=== PATIENT | female | born 1995 | race Caucasian/White ===

== ENCOUNTER → 2017-04-11 | Outpatient (CLI) | payer BC, MEDICAID ==
[~2017-04-11] MED LIST: ACET1TAB43 PO; AMOX250S5 PO; DCS100C PO; DEXAINTSOL PO; DOCU100C37 PO; FERR325T18 PO; HYDR-1231 PO; HYDR-3714 PO; HYDR15SO6 PO; IBUP-1773 PO; OMEP20CA12 PO; ONDA-42 SL; PRM25T PO; RANI150T15 PO; TETRACAINESUCKERS MT
--- NOTE | 2017-04-11 16:30 | Diagnostic Imaging Report ---
INDICATION: Abnormal uterine bleeding. TECHNIQUE: Transabdominal and transvaginal pelvic sonography was performed. FINDINGS: The uterus measures 6.9 x 4.6 x 3.7 cm. The endometrium is 8 mm in thickness. No uterine mass is identified. The right ovary measures 3.1 x 2.6 x 2.1 cm. There is blood flow to the right ovary. The left ovary was not visualized. No adnexal mass or free fluid is seen. IMPRESSION: Nonvisualized left ovary. The study is otherwise unremarkable. Dictated by: Dictated on workstation # [id number]
== END ==
LOC: RAD 14:36
PROVIDERS: ATTEND Obstetrics & Gynecology
DX: N93.9 Abnormal uterine and vaginal bleeding, unspecified (principal)
CPT/HCPCS: 76830; 76856

== ENCOUNTER → 2017-09-10 | Outpatient (CLI) | payer BC, MEDICAID ==
[~2017-09-10] MED LIST changes: -RANI150T15 PO; +RANI150T46 PO
--- NOTE | 2017-09-10 17:13 | Diagnostic Imaging Report ---
INDICATION: Survey. TECHNIQUE: Multiple real-time grayscale images were obtained over the gravid uterus. COMPARISON: 04/11/2017. FINDINGS: [place] intrauterine gestation is in cephalic position. The grade 2 placenta is posterior with no abruption or previa and a normal amniotic fluid volume. No pathological finding at the anatomical survey is revealed, however the cord insertion as well as the spine are suboptimally visualized on a positional basis. heart rate regular at 142 beats per minute. The measurements correlate with an average age 20 weeks 4 days. Biometrical measurements are as follows: Biparietal 4.77 cm, age 20 weeks 3 days. Head circumference 17.48 cm, age 20 weeks 1 days. Abdominal circumference 15.83 cm, age 21 weeks 0 days. Femur length 3.29 cm, age 20 weeks 2 days. Sonographic estimate age: 20 weeks 4 days. Sonographic estimated date of delivery: 01/24/18. Estimated Weight: 363 gm (+/- 53 gm). LMP percentile: 90%. heart rate: 142 beats per minute. number: 1 of 1. IMPRESSION: [place] viable IUP today measures 20 weeks 4 days. While no pathological finding is revealed, the spine and the cord insertion are suboptimally visualized. Dictated by: Dictated on workstation # [id number]
== END ==
LOC: RAD 14:26
PROVIDERS: ATTEND Obstetrics & Gynecology
DX: Z36.89 Encounter for other specified antenatal screening (principal); Z3A.20 20 weeks gestation of pregnancy
CPT/HCPCS: 76805

== ENCOUNTER 2018-01-10 12:45 | Outpatient (CLI) | payer BC, MEDICAID ==
[2018-01-10 12:55] VITALS: BP 134/79
--- NOTE | 2018-01-12 09:29 | Physician Query-Final Dx ---
Clinic Account Progress/Dx Physician Query: Date of Service Jan 10, 2018 at 12:45 DIAGNOSIS: Diagnosis decreased movement DONAL PRIETO DO Jan 12, 2018 09:29
[2018-01-15] MEDS ORDERED: ACHD5005 PO (16:50)
[2018-01-15] MEDS ORDERED: Benzocaine/Menthol TP (16:50)
[2018-01-15] MEDS ORDERED: DOCU100C37 PO (16:50)
[2018-01-15] MEDS ORDERED: IBUP-844 PO (16:50)
== END 2018-01-10 14:00 | disposition home or self-care (01) ==
LOC: WSo 12:45 → LDRP 12:53 → WSo 14:00
PROVIDERS: ATTEND Obstetrics & Gynecology
DX: O36.8130 Decreased fetal movements, third trimester, not applicable or unspecified (principal); Z3A.37 37 weeks gestation of pregnancy
CPT/HCPCS: 99213

== ENCOUNTER 2018-01-15 01:39 | Inpatient (IN) | payer BC, MEDICAID ==
[2018-01-15] VITALS (55 sets, daily range): BP systolic 101–154; BP diastolic 51–95
[~2018-01-15] VITALS: Ht 165.1 cm; Wt 113.9 kg
[2018-01-15 02:09] LABS: BILIRUBIN,URINE NEGATIVE (NEGATIVE); CLARITY,URINE CLEAR; COLOR,URINE YELLOW; GLUCOSE, URINE (UA) NEGATIVE (NEGATIVE); KETONES,URINE NEGATIVE (NEGATIVE); LEUKOCYTE ESTERASE ,URINE 1+ (NEGATIVE); NITRITE,URINE NEGATIVE (NEGATIVE); PH,URINE 7 (5-9); PROTEIN,URINE 1+ (NEGATIVE); UROBILINOGEN,URINE 1 MG/DL (NORMAL)
[2018-01-15 02:18] LABS: BACTERIA,URINE FEW /HPF; SQUAMOUS EPITHELIAL CELL,UR 0-2 /HPF; WBC,URINE 0-2 /HPF
[2018-01-15] MEDS ORDERED: D5 LR IV SOLUTION 1,000 ML IV ONE (02:27)
[2018-01-15] MEDS: D5 LR IV SOLUTION 1,000 ML IV SCH ×2 (02:56→15:17)
[2018-01-15 03:12] LABS: BASOPHILS % (AUTO) 0 % (0-10); EOSINOPHILS # (AUTO) 0.1 10^3/uL (0.0-0.3); EOSINOPHILS % (AUTO) 1 % (0-10); HEMATOCRIT 34 % (35-52); LYMPHOCYTES % (AUTO) 14 % (12-44); MEAN CORPUSCULAR HEMOGLOBIN 26 PG (25-34); MEAN CORPUSCULAR HGB CONC 33 G/DL (32-36); MEAN CORPUSCULAR VOLUME 79 FL (80-99); MEAN PLATELET VOLUME 11.1 FL (7.4-10.4); MONOCYTES # (AUTO) 1.2 X 10^3 (0.0-1.0); MONOCYTES % (AUTO) 8 % (0-12); NEUTROPHILS # (AUTO) 11.1 X 10^3 (1.8-7.8); NEUTROPHILS % (AUTO) 77 % (42-75); PLATELET COUNT 290 10^3/uL (130-400); RED BLOOD COUNT 4.28 10^6/uL (4.35-5.85); RED CELL DISTRIBUTION WIDTH 13.7 % (10.0-14.5); WHITE BLOOD COUNT 14.3 10^3/uL (4.3-11.0)
[2018-01-15] MEDS ORDERED: SUFENTA 0.6MCG/ML BUPIVA 0.125 100 ML ONE (03:21)
[2018-01-15] MEDS ORDERED: fentaNYL INJECTION 100 MCG/2 ML AMP ONE (03:44)
[2018-01-15] MEDS ORDERED: BUPIVACAINE 0.25% 30 ML (SENSORCAINE) VIAL ONE (03:44)
--- OUTSIDE RECORDS SUMMARY | 2018-01-15 04:04 | XMS REPORT | Continuity of Care Document ---
Demographics Preferred Language Unknown Marital Status Unknown Gnosticist Affiliation Unknown Race Unknown Ethnic Group Unknown Author Author [facility] Address Unknown Phone Unavailable Allergies Active Description Code Type Severity Reaction Onset Reported/Identified Relationship to Patient Clinical Status Yes levofloxacin [id number] Drug Allergy Mild Nausea 11/15/2015 Medications There is no data. Problems Date Dx Coded Attending Type Code Diagnosis Diagnosed By 07/09/2014 NAOMI HOUGH, PRABHU Fajardo Ot 575.8 DIS OF GALLBLADDER NEC 07/09/2014 PRABHU SALGADO MD Ot 787.01 NAUSEA WITH VOMITING 07/09/2014 PRABHU SALGADO MD Ot 789.06 ABDOMINAL PAIN, EPIGASTRIC 07/19/2014 ADITYA ALEXANDRE DO Ot 789.01 07/19/2014 ADITYA ALEXANDRE DO Ot 789.01 07/20/2014 ADITYA ALEXANDRE DO Ot 789.01 07/21/2014 ADITYA ALEXANDRE DO Ot 789.01 07/29/2014 TERELL HOUGH, ERICA P Ot 474.10 07/29/2014 TERELL HOUGH, ERICA P Ot 780.50 07/29/2014 TERELL HOUGH, ERICA P Ot 786.09 07/29/2014 TERELL HOUGH, ERICA Moreira Ot V72.84 07/29/2014 ADITYA ALEXANDRE DO Ot 789.01 07/29/2014 TERELL HOUGH, ERICA P Ot 474.00 CHRONIC TONSILLITIS 08/10/2014 ADITYA ALEXANDRE DO Ot 789.01 08/27/2014 TERELL HOUGH, ERICA P Ot 474.10 08/27/2014 TERELL HOUGH, ERICA P Ot 780.50 08/27/2014 TERELL HOUGH, ERICA P Ot 786.09 08/27/2014 TERELL HOUGH, ERICA P Ot V72.84 08/27/2014 ADITYA ALEXANDRE DO Ot 789.01 08/27/2014 ADITYA ALEXANDRE DO Ot 789.01 09/13/2014 TERELL HOUGH, ERICA P Ot 474.10 09/13/2014 TERELL HOUGH, ERICA P Ot 780.50 09/13/2014 TERELL HOUGH, ERICA P Ot 786.09 09/13/2014 ERICA FIGUEREDO MD Ot V72.84 09/13/2014 ALEXANDRE DOADITYA Ot 789.01 09/16/2014 ADITYA ALEXANDRE DO Ot 574.10 CHOLELITH W CHOLECYS NEC 09/16/2014 ADITYA ALEXANDRE DO Ot 575.8 10/11/2014 ALEXANDRE ADITYA VALDEZ Ot 575.8 10/11/2014 ADITYA ALEXANDRE DO Ot V72.84 10/11/2014 ADITYA ALEXANDRE DO Ot V74.8 11/30/2014 ALEXANDRE DOADITYA Ot 789.01 11/30/2014 ALEXANDRE DOADITYA D Ot 789.01 01/21/2015 ADITYA ALEXANDRE DO Ot 789.01 01/21/2015 ALEXANDREADITYA MAGANA DO Ot 789.01 02/02/2015 ALEXANDREADITYA MAGANA DO Ot 789.01 11/15/2015 ADITYA ALEXANDRE DO Ot 789.01 ABDOMINAL PAIN, RIGHT UPPER QUADRANT 11/16/2015 ERICA FIGUEREDO MD Ot 474.10 HYPERTROPHY T AND A 11/16/2015 ERICA FIGUEREDO MD Ot 780.50 SLEEP DISTURBANCE NOS 11/16/2015 ERICA FIGUEREDO MD Ot 786.09 RESPIRATORY ABNORM NEC 11/16/2015 REICA FIGUEREDO MD Ot V72.84 EXAM PRE-OPERATIVE NOS 11/16/2015 ADITYA ALEXANDRE DO Ot 789.01 ABDOMINAL PAIN, RIGHT UPPER QUADRANT 11/16/2015 ADITYA ALEXANDRE DO Ot 575.8 DIS OF GALLBLADDER NEC 11/16/2015 ADITYA ALEXANDRE DO Ot V72.84 EXAM PRE-OPERATIVE NOS 11/16/2015 ADITYA ALEXANDRE DO Ot V74.8 SCREEN-BACTERIAL DIS NEC 11/17/2015 ERICA PANDYA DO Ot D64.9 ANEMIA, UNSPECIFIED 11/17/2015 ERICA PANDYA DO Ot E66.9 OBESITY, UNSPECIFIED 11/17/2015 ERICA PANDYA DO Ot O99.013 ANEMIA COMPLICATING , THIRD TRI 11/17/2015 ERICA PANDYA DO Ot O99.213 OBESITY COMPLICATING , THIRD TR 11/17/2015 ERICA PANDYA DO Ot Z23 ENCOUNTER FOR IMMUNIZATION 11/17/2015 ERICA PANDYA DO Ot Z37.0 SINGLE LIVE 11/17/2015 YA ERICA Gail Ot Z3A.38 38 WEEKS GESTATION OF 11/17/2015 YA ERICA Ot Z68.41 BODY MASS INDEX (BMI) 40.0-44.9, ADULT 04/20/2016 ERICA FIGUEREDO MD Ot 474.10 HYPERTROPHY T AND A 04/20/2016 ERICA FIGUEREDO MD Ot 780.50 SLEEP DISTURBANCE NOS 04/20/2016 ERICA FIGUEREDO MD Ot 786.09 RESPIRATORY ABNORM NEC 04/20/2016 ERICA FIGUEREDO MD Ot V72.84 EXAM PRE-OPERATIVE NOS 04/20/2016 ADITYA ALEXANDRE DO Ot 789.01 ABDOMINAL PAIN, RIGHT UPPER QUADRANT 04/20/2016 ADITYA ALEXANDRE DO Ot 575.8 DIS OF GALLBLADDER NEC 04/20/2016 ADITYA ALEXANDRE DO Ot V72.84 EXAM PRE-OPERATIVE NOS 04/20/2016 ADITYA ALEXANDRE DO Ot V74.8 SCREEN-BACTERIAL DIS NEC 04/12/2017 ERICA PANDYA DO Ot N93.9 ABNORMAL UTERINE AND VAGINAL BLEEDING, U 04/12/2017 ERICA PANDYA DO Ot N93.9 ABNORMAL UTERINE AND VAGINAL BLEEDING, U 04/12/2017 ERICA FIGUEREDO MD Ot 474.10 HYPERTROPHY T AND A 04/12/2017 ERICA FIGUEREDO MD Ot 780.50 SLEEP DISTURBANCE NOS 04/12/2017 ERICA FIGUEREDO MD Ot 786.09 RESPIRATORY ABNORM NEC 04/12/2017 ERICA FIGUEREDO MD Ot V72.84 EXAM PRE-OPERATIVE NOS 04/12/2017 ADITYA ALEXANDRE DO Ot 789.01 ABDOMINAL PAIN, RIGHT UPPER QUADRANT 04/12/2017 ADITYA ALEXANDRE DO Ot 575.8 DIS OF GALLBLADDER NEC 04/12/2017 ADITYA ALEXANDRE DO Ot V72.84 EXAM PRE-OPERATIVE NOS 04/12/2017 ADITYA ALEXANDRE DO Ot V74.8 SCREEN-BACTERIAL DIS NEC 04/17/2017 ERICA PANDYA DO S Ot N93.9 ABNORMAL UTERINE AND VAGINAL BLEEDING, U 04/24/2017 ERICA PANDYA DO S Ot N93.9 ABNORMAL UTERINE AND VAGINAL BLEEDING, U 04/25/2017 ERICA PANDYA DO S Ot N93.9 ABNORMAL UTERINE AND VAGINAL BLEEDING, U 04/25/2017 FENECH DOERICA Ot N93.9 ABNORMAL UTERINE AND VAGINAL BLEEDING, U 05/28/2017 FENECH DO, ERICA Reynolds Ot N93.9 ABNORMAL UTERINE AND VAGINAL BLEEDING, U 09/11/2017 FENECH DOERICA Ot Z36.89 ENCOUNTER FOR OTHER SPECIFIED 09/11/2017 ISAACECH DOERICA Ot Z3A.20 20 WEEKS GESTATION OF 09/16/2017 FENECH DOERICA Ot Z36.89 ENCOUNTER FOR OTHER SPECIFIED 09/16/2017 FENECH DO, ERICA Reynolds Ot Z3A.20 20 WEEKS GESTATION OF 12/19/2017 FENECH DOERICA Ot Z36.89 ENCOUNTER FOR OTHER SPECIFIED 12/19/2017 FENECH DOERICA Ot Z3A.20 20 WEEKS GESTATION OF Procedures Code Description Performed By Performed On [id number] DIVISION OF FEMALE PERINEUM, EXTERNAL AP 11/15/2015 [id number] DELIVERY OF PRODUCTS OF CONCEPTION, EXTE 11/15/2015 Results Test Result Range Complete urinalysis with reflex to culture - 11/15/15 02:55 Urine color determination YELLOW NRG Urine clarity determination CLEAR NRG Urine pH measurement by test strip 7 5-9 Specific gravity of urine by test strip 1.015 1.016- 1.022 Urine protein assay by test strip, semi-quantitative 1+ NEGATIVE Urine glucose detection by automated test strip NEGATIVE NEGATIVE Erythrocytes detection in urine sediment by light microscopy NEGATIVE NEGATIVE Urine ketones detection by automated test strip NEGATIVE NEGATIVE Urine nitrite detection by test strip NEGATIVE NEGATIVE Urine total bilirubin detection by test strip NEGATIVE NEGATIVE Urine urobilinogen measurement by automated test strip (mass/volume) NORMAL NORMAL Urine leukocyte esterase detection by dipstick 2+ NEGATIVE Automated urine sediment erythrocyte count by microscopy (number/high power field) NONE NRG Automated urine sediment leukocyte count by microscopy (number/high power field ) [HPF] NRG Bacteria detection in urine sediment by light microscopy TRACE NRG Squamous epithelial cells detection in urine sediment by light microscopy 2-5 NRG Crystals detection in urine sediment by light microscopy NONE NRG Casts detection in urine sediment by light microscopy NONE NRG Mucus detection in urine sediment by light microscopy SMALL NRG Complete urinalysis with reflex to culture YES NRG Bacterial urine culture - 11/15/15 02:55 URINE CULTURE RESULTS <10,000/ML NRG Urine protein/creatinine mass ratio - 11/15/15 03:40 Urine protein measurement (mass/volume) 64 mg/dL 6-12 Urine creatinine measurement (mass/volume) 144 mg/dL 30- 125 Urine protein/creatinine mass ratio 0.44 NR Blood CBC with ordered manual differential panel - 11/15/15 03:48 Blood leukocytes automated count (number/volume) 12.6 10*3/uL 4.3-11.0 Blood erythrocytes automated count (number/volume) 3.65 10*6/uL 4.35-5.85 Venous blood hemoglobin measurement (mass/volume) 9.8 g/dL 11.5-16.0 Blood hematocrit (volume fraction) 29 % 35-52 Automated erythrocyte mean corpuscular volume 81 [foz_us] 80-99 Automated erythrocyte mean corpuscular hemoglobin (mass per erythrocyte) 27 pg 25-34 Automated erythrocyte mean corpuscular hemoglobin concentration measurement ( mass/volume) 33 g/dL 32-36 Automated erythrocyte distribution width ratio 13.0 % 10.0-14.5 Automated blood platelet count (count/volume) 292 10*3/uL 130-400 Automated blood platelet mean volume measurement 10.4 [foz_us] 7.4-10.4 Automated blood neutrophils/100 leukocytes 73 % 42-75 Automated blood lymphocytes/100 leukocytes 18 % 12-44 Blood monocytes/100 leukocytes 6 % NRG Automated blood eosinophils/100 leukocytes 1 % 0-10 Automated blood basophils/100 leukocytes 0 % 0-10 Blood neutrophils automated count (number/volume) 9.2 10*3 1.8-7.8 Blood lymphocytes automated count (number/volume) 2.3 10*3 1.0-4.0 Blood monocytes automated count (number/volume) 1.0 10*3 0.0-1.0 Automated eosinophil count 0.1 10*3/uL 0.0-0.3 Automated blood basophil count (count/volume) 0.0 10*3/uL 0.0-0.1 Manual blood segmented neutrophils/100 leukocytes 74 % NRG Blood band neutrophils/100 leukocytes 5 % NRG Manual blood lymphocytes/100 leukocytes 14 % NRG Manual eosinophils/100 leukocytes in nose 1 % NRG Blood erythrocyte morphology finding identification NORMAL NR Comprehensive metabolic panel - 11/15/15 03:48 Serum or plasma sodium measurement (moles/volume) 139 mmol/L 135-145 Serum or plasma potassium measurement (moles/volume) 3.5 mmol/L 3.6-5.0 Serum or plasma chloride measurement (moles/volume) 110 mmol/L 98-107 Carbon dioxide 18 mmol/L 21-32 Serum or plasma anion gap determination (moles/volume) 11 mmol/L 5-14 Serum or plasma urea nitrogen measurement (mass/volume) 5 mg/dL 7-18 Serum or plasma creatinine measurement (mass/volume) 0.53 mg/dL 0.60-1.30 Serum or plasma urea nitrogen/creatinine mass ratio 9 NRG Serum or plasma creatinine measurement with calculation of estimated glomerular filtration rate > NRG Serum or plasma glucose measurement (mass/volume) 94 mg/dL 70-105 Serum or plasma calcium measurement (mass/volume) 8.7 mg/dL 8.5-10.1 Serum or plasma total bilirubin measurement (mass/volume) 0.3 mg/dL 0.1-1.0 Serum or plasma alkaline phosphatase measurement (enzymatic activity/volume) 108 U/L 40-136 Serum or plasma aspartate aminotransferase measurement (enzymatic activity/ volume) 10 U/L 5-34 Serum or plasma alanine aminotransferase measurement (enzymatic activity/volume ) 9 U/L 0-55 Serum or plasma protein measurement (mass/volume) 5.9 g/dL 6.4-8.2 Serum or plasma albumin measurement (mass/volume) 3.1 g/dL 3.2-4.5 Serum or plasma uric acid measurement (mass/volume) - 11/15/15 03:48 Serum or plasma uric acid measurement (mass/volume) 2.8 mg/dL 2.6-7.2 Lactate dehydrogenase 1 [enzymatic activity/volume] in serum or plasma - 03:48 Lactate dehydrogenase 1 [enzymatic activity/volume] in serum or plasma 185 U/L 125-220 Blood type T Indirect antibody screen panel - 11/15/15 07:27 ABO+Rh group ABP [facility] Transfusion band number [id number] [facility] Blood group antibody screen NEGATIVE [facility] Capillary blood glucose measurement by glucometer (mass/volume) - 11/15/15 08: 52 Capillary blood glucose measurement by glucometer (mass/volume) 87 mg/dL 70-110 Complete blood count (CBC) with automated white blood cell (WBC) differential - 11/16/15 05:55 Blood leukocytes automated count (number/volume) 13.6 10*3/uL 4.3-11.0 Blood erythrocytes automated count (number/volume) 3.35 10*6/uL 4.35-5.85 Venous blood hemoglobin measurement (mass/volume) 8.8 g/dL 11.5-16.0 Blood hematocrit (volume fraction) 27 % 35-52 Automated erythrocyte mean corpuscular volume 81 [foz_us] 80-99 Automated erythrocyte mean corpuscular hemoglobin (mass per erythrocyte) 26 pg 25-34 Automated erythrocyte mean corpuscular hemoglobin concentration measurement ( mass/volume) 32 g/dL 32-36 Automated erythrocyte distribution width ratio 12.6 % 10.0-14.5 Automated blood platelet count (count/volume) 219 10*3/uL 130-400 Automated blood platelet mean volume measurement 10.8 [foz_us] 7.4-10.4 Automated blood neutrophils/100 leukocytes 75 % 42-75 Automated blood lymphocytes/100 leukocytes 16 % 12-44 Blood monocytes/100 leukocytes 9 % 0-12 Automated blood eosinophils/100 leukocytes 0 % 0-10 Automated blood basophils/100 leukocytes 0 % 0-10 Blood neutrophils automated count (number/volume) 10.2 10*3 1.8-7.8 Blood lymphocytes automated count (number/volume) 2.2 10*3 1.0-4.0 Blood monocytes automated count (number/volume) 1.2 10*3 0.0-1.0 Automated eosinophil count 0.0 10*3/uL 0.0-0.3 Automated blood basophil count (count/volume) 0.0 10*3/uL 0.0-0.1 Encounters ACCT No. Visit Date/Time Discharge Status Pt. Type Provider Facility Loc./Unit Complaint [id number] 01/18/2012 11:24:05 RECURRING [id number] 09/10/2017 14:26:00 09/10/2017 23:59:59 CLS Outpatient ERICA PANDYA DO [facility] RAD ANATOMY SCAN [id number] 04/11/2017 14:36:00 04/11/2017 23:59:59 CLS Outpatient ERICA PANDYA DO [facility] RAD N93.8 [id number] 11/15/2015 06:42:00 11/17/2015 15:50:00 DIS Inpatient FENECH , ERICA S [facility] LDRP CONTRACTIONS;LABOR [id number] 09/16/2014 06:18:00 09/16/2014 11:50:00 DIS Outpatient ADITYA ALEXANDRE DO [facility] ABNORMAL EJECTION FRACTION [id number] 09/13/2014 13:31:00 09/13/2014 23:59:59 CLS Outpatient ADITYA ALEXANDRE DO [facility] PREOP ABNORMAL EJECTION FRACTION [id number] 07/29/2014 06:39:00 07/29/2014 12:00:00 DIS Outpatient ERICA FIGUEREDO MD [facility] HYPERTROPHY ADENOID TONSILS; SNORING; [id number] 07/23/2014 05:47:00 07/23/2014 23:59:59 CLS Outpatient ERICA FIGUEREDO MD [facility] PREOP HYPERTROPHY ADENOID TONSILS; SNORING; [id number] 07/19/2014 09:56:00 07/19/2014 23:59:59 CLS Outpatient ALEXANDRE ADITYA VALDEZ [facility] CARD RUQ PAIN [id number] 07/09/2014 08:46:00 07/09/2014 13:37:00 DIS Emergency PRABHU SALGADO MD [facility] ER ABD PAIN [id number] 09/16/2014 06:37:34 ACT Document Registration
[2018-01-15] MEDS ORDERED: LACTATED RINGERS 1,000 ML IV ONE (04:24)
[2018-01-15] MEDS ORDERED: EPIDURAL (SUFENTA 0.6MCG/ML BUPIVA 0.125%) 100 ML BAG EPI SCH (04:30)
[2018-01-15] MEDS ORDERED: NALOXONE 0.4 MG/ML 1 ML (NARCAN) VIAL IV PRN (04:30)
[2018-01-15] MEDS ORDERED: CATHETER FLUSH 10 ML SYR IV PRN (04:30)
[2018-01-15] MEDS ORDERED: CATHETER FLUSH 10 ML SYR IV SCH ×2 (06:00→14:00)
--- NOTE | 2018-01-15 08:36 | History & Physical-OB ---
OB - Chief Complaint & HPI Date/Time Date of Admission: Date of Admission: Jan 15, 2018 at 2:42 am Date seen by a Provider: Jan 15, 2018 Time Seen by a Provider: 08:00 Chief Complaint/History OB-Reason for Admission/Chief: Onset of Labor Hx : 2 Hx Para: 1 Expected Date of Delivery: Jan 30, 2018 Gestational Age in Weeks: 37 Gestational Age in Days: 6 Admission Nurse Assessment Rev: Yes History of Labs AB pos Antibody neg RI RPR NR HBsAg NR HIV NR GC neg GBS neg Allergies and Home Medications Allergies Coded Allergies: levofloxacin (Verified Adverse Reaction, Mild, Nausea, 11/15/15) Home Medications Docusate Sodium 100 Mg Capsule, 100 MG PO BID Prescribed by: ERICA PANDYA on 11/16/15 1338 Ferrous Sulfate 325 Mg Tablet, 325 MG PO DAILY Prescribed by: ERICA PANDYA on 11/16/151337 Patient Home Medication List Home Medication List Reviewed: Yes OB - History Hx of Present Care: Yes Ultrasounds: Normal mid trimester US Obstetrical Complications: None Medical Complications: None Obstetrical History Hx : 2 Hx Para: 1 Delivery History Hx Blood Disorders: No Adverse Rxn to Tranfusion: No Patient Past Medical History n/a Social History/Family History HIV/AIDS: No Recent Infectious Disease Expo: No Sexually Transmitted Disease: No Alcohol Use: Denies Use Recreational Drug Use: No Immunizations Date of Influenza Vaccine: Nov 27, 2017 OB - Admission Exam Physical Exam Vitals: Vital Signs 01/15/18 01/15/18 01/15/18 01:55 05:28 07:00 Temp 97.4 Pulse 69 Resp 18 B/P (MAP) 109/57 (74) Pulse Ox 99 O2 Delivery Room Air HEENT: NCAT Heart: Rhythm Normal Lungs: Clear Abdomen: Gravid Extremities: Normal Reflexes: Normal Cervical Dilatation: 5cm Effacement: 75% Station: -1 Membranes: Intact Heart Rate: 130's Accelerations: Accelerations Present Decelerations: No Decelerations Short Term Variability: Present Fpc Variability: Average (6-25) Contractions on Admission: < 5 Minutes Apart Intensity: Firm Labs Laboratory Tests Test 01/15/18 01:50 01/15/18 02:55 Range/Units Urine Color YELLOW Urine Clarity CLEAR Urine pH 7 5-9 Urine Specific [place] 1.015 L 1.016-1.022 Urine Protein 1+ H NEGATIVE Urine Glucose (UA) NEGATIVE NEGATIVE Urine Ketones NEGATIVE NEGATIVE Urine Nitrite NEGATIVE NEGATIVE Urine Bilirubin NEGATIVE NEGATIVE Urine Urobilinogen 1 NORMAL MG/DL Urine Leukocyte Esterase 1+ H NEGATIVE Urine RBC (Auto) NEGATIVE NEGATIVE Urine RBC NONE /HPF Urine WBC 0-2 /HPF Urine Squamous Epithelial Cells 0-2 /HPF Urine Crystals NONE /LPF Urine Bacteria FEW H /HPF Urine Casts NONE /LPF Urine Mucus SMALL H /LPF Urine Culture Indicated NO White Blood Count 14.3 H 4.3-11.0 10^3/uL Red Blood Count 4.28 L 4.35-5.85 10^6/uL Hemoglobin 11.0 L 11.5-16.0 G/DL Hematocrit 34 L 35-52 % Mean Corpuscular Volume 79 L 80-99 FL Mean Corpuscular Hemoglobin 26 25-34 PG Mean Corpuscular Hemoglobin Concent 33 32-36 G/DL Red Cell Distribution Width 13.7 10.0-14.5 % Platelet Count 290 130-400 10^3/uL Mean Platelet Volume 11.1 H 7.4-10.4 FL Neutrophils (%) (Auto) 77 H 42-75 % Lymphocytes (%) (Auto) 14 12-44 % Monocytes (%) (Auto) 8 0-12 % Eosinophils (%) (Auto) 1 0-10 % Basophils (%) (Auto) 0 0-10 % Neutrophils # (Auto) 11.1 H 1.8-7.8 X 10^3 Lymphocytes # (Auto) 2.0 1.0-4.0 X 10^3 Monocytes # (Auto) 1.2 H 0.0-1.0 X 10^3 Eosinophils # (Auto) 0.1 0.0-0.3 10^3/uL Basophils # (Auto) 0.0 0.0-0.1 10^3/uL OB - Assessment/Plan/Diagnosis Assessment Assessment: active labor Admission Dx 22 yo @ 37.6 weeks Active labor GBS neg BMI 41 Admission Status: Inpatient Order (span 2 midnights) Reason for Inpatient Admission: Active labor term Plan Plan: Expectant Management ERICA PANDYA DO Jan 15, 2018 8:36 am
[2018-01-15] MEDS ORDERED: ONDANSETRON 4 MG/2 ML (SDV) Z0FRAN ONE (09:41)
[2018-01-15] MEDS ORDERED: OXYTOCIN/NORMAL SALINE 0 ML IV ONE (10:08)
[2018-01-15] MEDS ORDERED: LIDOCAINE/EPI 2% 1:200,00 (XYLOCAINE) 10 ML VIAL ONE (10:11)
[2018-01-15] MEDS ORDERED: OXYTOCIN/NORMAL SALINE 500 ML IV SCH (11:14)
[2018-01-15] MEDS ORDERED: OXYTOCIN/NORMAL SALINE 500 ML IV ONE (11:14)
[2018-01-15] MEDS ORDERED: HYDROcodone/APAP 5 MG/325 MG (LORTAB) TAB PO PRN (11:15)
[2018-01-15] MEDS ORDERED: DIBUCAINE (NUPERCAINAL) 1% OINT 30 GM TOP PRN (11:15)
[2018-01-15] MEDS ORDERED: TETANUS,DIPTH,PERTUSS P/F (BOOSTRIX) 0.5 ML VIAL IM ONE (11:15)
[2018-01-15] MEDS ORDERED: BENZOCAINE/MENTHOL (DERMOPLAST) 56 ML CAN TP PRN (11:15)
[2018-01-15] MEDS ORDERED: WITCH HAZEL(TUCKS) 40 EA JAR TOP PRN (11:15)
[2018-01-15] MEDS ORDERED: MEASLES,MUMPS,RUBELLA 1 EA INJ SQ ONE (11:15)
--- NOTE | 2018-01-15 11:20 | OB Labor & Delivery Record ---
L&D History Date of Service Date of Service: Jan 15, 2018 History Expected Date of Delivery: Jan 30, 2018 Gestational Age in Weeks: 37 Hx : 2 Hx Para: 1 Complications Events: Routine care Operative Indications (Cesarea: N/A-Vaginal Delivery Intrapartal Events: None L&D Stage1 Stage One Onset of Labor - Date: Jan 15, 2018 Monitors and Tracing Monitor Mode: External Heart Rate: 135 Monitor Decelerations: None [employer] Financial Analyst Variability: Moderate (11-25) Presentation: Vertex Vital Signs VS - Last 72 Hours, by Label 01/15/18 01/15/18 01/15/18 01/15/18 01:55 03:00 03:30 03:42 Temp 97.2 Pulse 106 96 91 88 Resp 18 B/P (MAP) 129/74 (92) 144/86 (105) Pulse Ox 98 100 O2 Delivery Room Air Room Air 01/15/18 01/15/18 01/15/18 01/15/18 03:58 04:00 04:03 04:08 Pulse 85 86 86 87 B/P (MAP) 121/66 (84) 130/74 (92) 119/57 (77) Pulse Ox 96 96 99 100 O2 Delivery Room Air Room Air Room Air Room Air 01/15/18 01/15/18 01/15/18 01/15/18 04:13 04:15 04:17 04:22 Pulse 85 84 75 78 B/P (MAP) 126/72 (90) 128/69 (88) 120/57 (78) Pulse Ox 98 98 96 99 O2 Delivery Room Air Room Air Room Air Room Air 01/15/18 01/15/18 01/15/18 01/15/18 04:27 04:30 04:33 04:37 Pulse 76 87 71 81 B/P (MAP) 116/57 (76) 127/65 (85) 123/61 (81) Pulse Ox 99 98 100 100 O2 Delivery Room Air Room Air Room Air Room Air 01/15/18 01/15/18 01/15/18 01/15/18 04:42 04:45 04:48 04:52 Pulse 75 83 74 78 B/P (MAP) 125/59 (81) 132/77 (95) 121/72 (88) Pulse Ox 98 98 97 99 O2 Delivery Room Air Room Air Room Air Room Air 01/15/18 01/15/18 01/15/18 01/15/18 04:57 05:00 05:05 05:08 Pulse 78 81 77 81 B/P (MAP) 120/69 (86) 123/67 (85) 119/70 (86) Pulse Ox 99 99 99 97 O2 Delivery Room Air Room Air Room Air Room Air 01/15/18 01/15/18 01/15/18 01/15/18 05:14 05:15 05:19 05:23 Pulse 76 71 75 83 B/P (MAP) 121/68 (85) 125/61 (82) 126/61 (82) Pulse Ox 99 99 100 100 O2 Delivery Room Air Room Air Room Air Room Air 01/15/18 01/15/18 01/15/18 01/15/18 05:28 05:30 05:34 05:39 Temp 97.4 Pulse 76 86 78 80 B/P (MAP) 116/58 (77) 117/58 (77) 111/55 (73) Pulse Ox 100 100 99 98 O2 Delivery Room Air Room Air Room Air Room Air 01/15/18 01/15/18 01/15/18 01/15/18 05:43 05:45 05:49 05:53 Pulse 75 80 75 68 B/P (MAP) 110/56 (74) 109/55 (73) 110/57 (74) Pulse Ox 98 98 98 98 O2 Delivery Room Air Room Air Room Air Room Air 01/15/18 01/15/18 01/15/18 01/15/18 05:58 06:00 06:03 06:08 Pulse 76 75 71 77 B/P (MAP) 111/57 (75) 112/64 (80) 104/58 (73) Pulse Ox 99 99 98 100 O2 Delivery Room Air Room Air Room Air Room Air 01/15/18 01/15/18 01/15/18 01/15/18 06:15 06:30 06:45 07:00 Pulse 79 66 68 69 B/P (MAP) 101/55 (70) 109/58 (75) 109/57 (74) Pulse Ox 100 100 99 99 O2 Delivery Room Air Room Air Room Air Room Air 01/15/18 07:15 Pulse 69 B/P (MAP) 109/59 (76) Pulse Ox 99 O2 Delivery Room Air Rupture of Membranes Spontaneous Ruture of Membrane: No Amniotic Membrane Rupture Time: 08:10 Amniotic Membrane Fluid Desc.: Clear Vaginal Bleeding Description: Normal Show Induction/Anesthesia Epidural Cath Placement - Time: 412 L&D Stage2 Stage Two Stage II Date: Jan 15, 2018 Monitors and Tracing Monitor Mode: External Heart Rate: 135 Monitor Decelerations: Variable Group Home Variability: Moderate (11-25) Short Term Variability: Present Position: Right Occiput Anterior Presentation: Vertex Cord Descript/Complications Cord Vessel Description: 3 Vessels Delivery Type Delivery Method: Spontaneous Vaginal Anterior Shoulder: Right Episiotomy/Perineal Laceration Laceraction(s)/Extensions: Yes Degree (describe repair) right labial laceration repaired using 3-0 rapide Condition of Infant Delivery 1 minute Comment: 8 5 minute Comment: 9 Notes Live female weight pending Condition of Infant Condition of : Living Exam: No Observed Abnormalities Resuscitation Resuscitation: N/A - Spontaneous Resp L&D Stage3 Stage Three Stage III Date: Jan 15, 2018 Pictocin Pitocin Administration Comment: 30 mu wide open at delivery of placenta Placenta Delivery Placenta Delivery: Spontaneous Delivery Summary Summary Estimated blood loss (mL): 300 Attending at delivery: Erica Pandya DO Condition of Delivery Examined: Cervix Examined, Uterus Explored Post Hemorrhage: No Condition of Mother stable Condition of (s) stable ERICA PANDYA DO Jan 15, 2018 11:20 am
[2018-01-15] MEDS: IBUPROFEN 600 MG (MOTRIN) TAB PO SCH ×2 (12:34→18:26)
--- NOTE | 2018-01-15 16:49 | Discharge Inst-Women's Service ---
Discharge Inst-Women's Serv Depart Medication/Instructions New, Converted or Re-Newed RX: RX on Chart Final Diagnosis PPD 1 NVD Consults/Follow Up Additional Follow Up: Yes Orders/Referrals Dr. Pandya in 6 weeks Activity Activity: Activity as Tolerated Driving Instructions: No Driving for 1 Week NO SMOKING: NO SMOKING Nothing Inside Vagina: No Douching, No [place], No Tampons Diet Discharge Diet: No Restrictions Symptoms to Report to : Bleeding Excessive, Pain Increased, Fever Over 101 Degrees F, Vaginal Bleeding Increase, Questions/Concerns For Any Problems or Questions: Contact Your Physician ERICA PANDYA DO Jan 15, 2018 4:49 pm
[2018-01-15] MEDS ORDERED: DOCU100C37 PO (16:50)
[2018-01-15] MEDS ORDERED: ACHD5005 PO (16:50)
[2018-01-15] MEDS ORDERED: IBUP-844 PO (16:50)
[2018-01-15] MEDS ORDERED: Benzocaine/Menthol TP (16:50)
[2018-01-15] MEDS: DOCUSATE SODIUM 100 MG (COLACE) CAP PO SCH (22:15)
[2018-01-16 00:58] VITALS: BP 116/75
[2018-01-16] MEDS: IBUPROFEN 600 MG (MOTRIN) TAB PO SCH ×2 (00:58→08:10)
[2018-01-16 04:55] VITALS: BP 110/69
[2018-01-16 06:18] LABS: BASOPHILS % (AUTO) 0 % (0-10); EOSINOPHILS # (AUTO) 0.1 10^3/uL (0.0-0.3); EOSINOPHILS % (AUTO) 1 % (0-10); HEMATOCRIT 29 % (35-52); HEMOGLOBIN 9.3 G/DL (11.5-16.0); LYMPHOCYTES # (AUTO) 2.6 X 10^3 (1.0-4.0); LYMPHOCYTES % (AUTO) 24 % (12-44); MEAN CORPUSCULAR HEMOGLOBIN 26 PG (25-34); MEAN CORPUSCULAR HGB CONC 32 G/DL (32-36); MEAN CORPUSCULAR VOLUME 81 FL (80-99); MEAN PLATELET VOLUME 11.4 FL (7.4-10.4); MONOCYTES # (AUTO) 0.9 X 10^3 (0.0-1.0); MONOCYTES % (AUTO) 8 % (0-12); NEUTROPHILS # (AUTO) 7.4 X 10^3 (1.8-7.8); NEUTROPHILS % (AUTO) 67 % (42-75); PLATELET COUNT 216 10^3/uL (130-400); RED BLOOD COUNT 3.62 10^6/uL (4.35-5.85); RED CELL DISTRIBUTION WIDTH 13.6 % (10.0-14.5); WHITE BLOOD COUNT 11.1 10^3/uL (4.3-11.0)
[2018-01-16] MEDS ORDERED: PRENATAL VITAMIN 1 EA TAB PO SCH (07:00)
[2018-01-16] MEDS: DOCUSATE SODIUM 100 MG (COLACE) CAP PO SCH (08:10)
[2018-01-16 08:15] VITALS: BP 113/77
[2018-01-16] MEDS ORDERED: FERROUS SULF 325 MG (IRON) TAB PO SCH (09:00)
--- NOTE | 2018-01-16 13:56 | Anesthesia-Regional Post-Op ---
Regional Patient Condition Mental Status: Alert, Oriented x3 Circulation: Same as Pre-Op Headache: Absent Sensation: Full Recovery Motor Block: Absent Post Op Complications Complications None Follow Up Care/Instructions Patient Instructions None needed. Anesthesia/Patient Condition Patient is doing well, no complaints, stable vital signs, no apparent adverse anesthesia problems. TERRI PETERS DO Jan 16, 2018 13:56
[2018-01-16] MEDS ORDERED: TETANUS,DIPTH,PERTUSS P/F (BOOSTRIX) 0.5 ML VIAL IM ONE (14:45)
--- NOTE | 2018-01-16 16:35 | Postpartum Progress Note ---
Note Note Day # 1 Subjective: Patient is without complaints. Ambulating, voiding. Tolerating a regular diet without nausea or vomiting. Normal lochia. Pain is well controlled with oral pain medications. Objective: Vital Sign - Last 24 Hours 01/16/18 01/16/18 01/16/18 00:58 04:55 08:15 Temp 99.0 97.7 96.7 Pulse 72 68 67 Resp 18 18 18 B/P (MAP) 116/75 (89) 110/69 (83) 113/77 (89) Pulse Ox 96 96 97 O2 Delivery Room Air Room Air Intake and Output 01/15/18 01/15/18 01/16/18 15:00 23:00 07:00 Intake Total 1500 ml Balance 1500 ml Physical Exam: General - Alert and oriented, no apparent distress Abdomen - Soft, appropriately tender to palpation, non-distended, fundus firm at umbilicus Extremities - no edema, negative Raine's bilaterally Assessment: PPD 1 NVD Acute blood loss anemia Plan: Routine care. Encourage breast feeding. Encourage ambulation. Ferrous sulfate supplementation. Plan for discharge today Vitals - Labs Vital Signs - I&O Vital Signs Date Time Temp Pulse Resp B/P (MAP) Pulse Ox O2 Delivery O2 Flow Rate FiO2 01/16/18 08:15 96.7 67 18 113/77 (89) 97 01/16/18 04:55 97.7 68 18 110/69 (83) 96 Room Air 01/16/18 00:58 99.0 72 18 116/75 (89) 96 Room Air I & O 01/16/18 07:00 Intake Total 1500 ml Balance 1500 ml Labs Laboratory Tests 01/16/18 05:55: White Blood Count 11.1H, Red Blood Count 3.62L, Hemoglobin 9.3L, Hematocrit 29L , Mean Corpuscular Volume 81, Mean Corpuscular Hemoglobin 26, Mean Corpuscular Hemoglobin Concent 32, Red Cell Distribution Width 13.6, Platelet Count 216, Mean Platelet Volume 11.4H, Neutrophils (%) (Auto) 67, Lymphocytes (%) (Auto) 24 , Monocytes (%) (Auto) 8, Eosinophils (%) (Auto) 1, Basophils (%) (Auto) 0, Neutrophils # (Auto) 7.4, Lymphocytes # (Auto) 2.6, Monocytes # (Auto) 0.9, Eosinophils # (Auto) 0.1, Basophils # (Auto) 0.0 ERICA PANDYA DO Jan 16, 2018 4:35 pm
== END 2018-01-16 17:20 | disposition home or self-care (01) | DRG 806 ==
LOC: LDRP 01:39 → WSo 01:39 → LDRP 02:42
PROVIDERS: ADMIT Obstetrics & Gynecology; ATTEND Obstetrics & Gynecology
PROC: 10E0XZZ Delivery of Products of Conception, External Approach (ICD-10-PCS; principal; 2018-01-15)
PROC: 0HQ9XZZ Repair Perineum Skin, External Approach (ICD-10-PCS; 2018-01-15)
DX: O99.213 Obesity complicating pregnancy, third trimester (principal); E66.01 Morbid (severe) obesity due to excess calories; O99.03 Anemia complicating the puerperium; D62 Acute posthemorrhagic anemia; O70.0 First degree perineal laceration during delivery; O99.613 Diseases of the digestive system complicating pregnancy, third trimester; K21.9 Gastro-esophageal reflux disease without esophagitis; Z3A.37 37 weeks gestation of pregnancy; Z37.0 Single live birth
CPT/HCPCS: 36415; 81000; 85025; 86850; 86900; 86901; 90715; 99212

== ENCOUNTER → 2021-04-21 | Outpatient (CLI) | payer MEDICAID ==
[~2021-04-21] MED LIST changes: +ACHD5005 PO; +Benzocaine/Menthol TP; +IBUP-844 PO; +RANI-613 PO; -RANI150T46 PO
--- NOTE | 2021-04-21 13:56 | Diagnostic Imaging Report ---
PROCEDURE: US Non-ob pelvis comp/trans. INDICATION: 25-YEAR-OLD FEMALE, CHRONIC PELVIC PAIN TECHNIQUE: Multiple real time ching scale sonographic images were obtained of the pelvis transabdominally and endovaginally. CORRELATION STUDY: None FINDINGS: UTERUS: 8.3 x 4.3 x 5.3 cm. ENDOMETRIUM: 9 mm. The uterus and endometrium appearing unremarkable. RIGHT OVARY: Approximately 3.5 x 2.0 x 2.6 cm LEFT OVARY: Approximately 2.3 x 1.2 x 2.0 cm The ovaries are visualized on transabdominal imaging only. Transvaginal assessment may be limited by obscuration with overlying bowel gas. Therefore ovaries are limited in evaluation, but generally unremarkable appearance. No definitive abnormal adnexal mass. There is blood flow to the ovaries. No significant free pelvic fluid. IMPRESSION: 1. Limited but generally unremarkable appearing pelvic ultrasound examination. Dictated by: Dictated on workstation # [id number]
== END ==
LOC: RAD 13:00
PROVIDERS: ATTEND Obstetrics & Gynecology
DX: R10.2 Pelvic and perineal pain (principal)
CPT/HCPCS: 76830; 76856